=== PATIENT | female | born 1985 | race Caucasian/White ===

== ENCOUNTER 2022-03-22 19:09 | Outpatient (CLI) | payer BC, OTHER ==
[2022-03-22] MEDS ORDERED: MACROBID 100 M100 MG PO (20:40)
== END 2022-03-22 21:16 | disposition home or self-care (01) ==
LOC: GENOP 19:09
DX: O99.891 Other specified diseases and conditions complicating pregnancy (principal); R39.198 Other difficulties with micturition; Z3A.30 30 weeks gestation of pregnancy
CPT/HCPCS: 81001; G0463

== ENCOUNTER 2022-04-20 09:58 | Inpatient (IN) | payer BC, OTHER ==
[~2022-04-20] VITALS: Ht 180.3 cm; Wt 83.0 kg
[~2022-04-20 09:58] MED LIST: MACROBID 100 M100 MG PO
[2022-04-20 11:14] LABS: HEMOGLOBIN 14.5 gm/dl (12.3-15.3); RED BLOOD COUNT 4.79 M/UL (4.00-5.10); WHITE BLOOD COUNT 10.2 K/UL (4.5-11.0)
[2022-04-20 11:47] LABS: BUN/CREATININE RATIO 16 (0-10)
[2022-04-20] MEDS ORDERED: PRENATAL VITAM1 EAC5 PO (14:46)
[2022-04-21] MEDS ORDERED: IBUPROFEN600 MG PO (16:06)
[2022-04-21] MEDS ORDERED: COLACE100 MG PO (16:06)
[2022-04-22 04:48] LABS: HEMOGLOBIN 12.8 gm/dl (12.3-15.3)
[2022-04-23] MEDS ORDERED: LABETALOL HCL100 MG PO (11:21)
== END 2022-04-23 12:09 | disposition home or self-care (01) | DRG 807 ==
LOC: GENOP 09:58 → OB 13:16
PROVIDERS: Obstetrics & Gynecology; ADMIT Obstetrics & Gynecology
PROC: 10E0XZZ Delivery of Products of Conception, External Approach (ICD-10-PCS; principal; 2022-04-21)
PROC: 10907ZC Drainage of Amniotic Fluid, Therapeutic from Products of Conception, Via Natural or Artificial Opening (ICD-10-PCS; 2022-04-21)
PROC: 3E033VJ Introduction of Other Hormone into Peripheral Vein, Percutaneous Approach (ICD-10-PCS; 2022-04-21)
PROC: 4A1H7CZ Monitoring of Products of Conception, Cardiac Rate, Via Natural or Artificial Opening (ICD-10-PCS; 2022-04-21)
PROC: 10H073Z Insertion of Monitoring Electrode into Products of Conception, Via Natural or Artificial Opening (ICD-10-PCS; 2022-04-21)
PROC: 0UH97HZ Insertion of Contraceptive Device into Uterus, Via Natural or Artificial Opening (ICD-10-PCS; 2022-04-21)
DX: O14.14 Severe pre-eclampsia complicating childbirth (principal); Z37.0 Single live birth; O42.013 Preterm premature rupture of membranes, onset of labor within 24 hours of rupture, third trimester; O60.14X0 Preterm labor third trimester with preterm delivery third trimester, not applicable or unspecified; Z3A.35 35 weeks gestation of pregnancy; Z90.49 Acquired absence of other specified parts of digestive tract; Z98.890 Other specified postprocedural states; Z28.310 Unvaccinated for COVID-19; Z82.49 Family history of ischemic heart disease and other diseases of the circulatory system; Z83.3 Family history of diabetes mellitus; Z80.3 Family history of malignant neoplasm of breast
CPT/HCPCS: 36415; 80053; 81001; 82570; 83735; 84156; 84550; 85014; 85018; 85025; J0702; J2590; J3475